=== PATIENT | female | born 1985 ===

== ENCOUNTER 2025-08-02 07:31 | Emergency (ER) | payer OTHER, SELFPAY ==
[2025-08-02] VITALS (8 sets, daily range): BP systolic 110–154; BP diastolic 58–98; PULSE 66–81; RESP 14–16; TEMP -17.7–36.6; O2SAT 100; BMI 39.7
--- NOTE | 2025-08-02 07:47 | ED.GENADULT ---
HPI - General Adult General Chief complaint: Dizziness Stated complaint: WEAKNESS,NAUSEA,LIGHTHEADEDNESS,?ANEMIA PER EMS Time Seen by Provider: 08/02/25 07:36 Source: patient and EMS Mode of arrival: EMS Limitations: no limitations History of Present Illness ED Provider: TO Naranjo HPI narrative: This is a 40-year-old female past medical history significant for anemia, hypothyroidism presents to the emergency department via ambulance with complaints of nausea, lightheadedness, feeling unwell and diffuse headache. She tells me she has a known history of anemia and according to her doctor her blood count was recently lower than he would like it to be, he ordered for her to get iron transfusions which she has not yet received. She tells me she never heard back after he sent the referral. She tells me she frequently feels lightheaded however today much worse. She felt like she was going to pass out however never passed out she was at work when all of this happened. She also reports significant nausea today. She denies visual disturbances, weakness, changes in speech, difficulty with word finding, chest pain, vomiting, abdominal pain, changes in urinary or bowel habits. She has not noted hematochezia, melena or hematuria. Related Data Previous Rx's ?Medication ?Instructions ?Recorded cefuroxime axetil 250 mg tablet 250 mg PO BID 7 days #14 tabs 08/02/25 Allergies Allergy/AdvReac Type Severity Reaction Status Date / Time Unable to Assess Allergy Verified 08/02/25 07:47 Review of Systems Review of Systems: Yes all other systems are reviewed and are negative [facility] Past Medical History Attestation statement: The following information was validated with the patient. Source: old records reviewed and nursing notes reviewed Social History Social History Smoked in Last 30 Days: No Use of substances other than those prescribed or required for medical reasons: No Advance Directives: No Advance Directives Information Provided: Yes Do you have a plan to hurt others: No Plan Physical Exam ED Exam Exam: Appearance: Alert.? Oriented X3.? No acute distress.? Head: Normocephalic, atraumatic, no step-offs or deformities Eyes: Pupils equal, round and reactive to light.? ENT: Pharynx normal.? Neck: Normal inspection.? Neck supple.? CVS: Normal heart rate and rhythm.? Pulses normal.? Respiratory: No respiratory distress.? Breath sounds normal.? Abdomen: Soft and nontender.? Skin: Skin warm and dry.? Normal skin color.? Normal skin turgor.? Extremities: No lower extremity edema.? No calf ttp. 5/5 strength to bilateral upper and lower extremities Back: No midline tenderness, no C-spine tenderness, full range of motion, no CVA tenderness bilaterally Neuro: Oriented X 3.? No motor deficit.? No sensory deficit. CN 2-12 intact . Normal [id number], kihs-zl-[id number] steady tandem gait normal coordination Vital Signs: Vital Signs - 24 hr 08/02/25 07:46 08/02/25 08:19 08/02/25 08:39 Temperature 98 F 98 F Pulse Rate 71 71 66 Respiratory Rate 16 16 Blood Pressure 139/81 139/81 110/58 L Pulse Oximetry 100 100 Oxygen Delivery Method Room Air Room Air 08/02/25 08:41 08/02/25 08:42 08/02/25 09:50 Temperature Pulse Rate 68 73 68 Respiratory Rate 14 Blood Pressure 125/71 125/69 122/63 Pulse Oximetry 100 Oxygen Delivery Method Room Air BMI result Body Mass Index 39.7 vss NIH Stroke Scale Internal: Initial- Upon Arrival Level of Consciousness: Alert Level of Consciousness Questions: Answers both questions correctly Level of Consciousness Commands: Performs both tasks correctly Best Gaze: Normal Visual: No visual loss Facial Palsy: Normal Motor Arm (Right): No drift Motor Arm (Left): No drift Motor Leg (Right): No drift Motor Leg (Left): No drift Limb Ataxia: Absent Sensory: Normal Best Language: No aphasia Dysarthia: Normal Extinction and Inattention: No abnormality Score: 0 Course Reevaluation(s) Reevaluation #1: CBC unremarkable. Hemoglobin 10.2, hematocrit 33.5 with a normal MCV this is consistent with a normocytic hypochromic anemia. Patient's chemistry with no acute electrolyte abnormalities necessitating intervention. Beta hCG negative. Normal lipase. Coags unremarkable. Time: 09:01 Reevaluation #2: Orthostatic vital signs negative. Time: 09:12 Reevaluation #3: Patient's urine with evidence of infection. Positive leukocyte esterases and nitrates. Time: 09:46 Additional Reevaluation(s): Patient tells me she is feeling better her headache is gone upon re-evaluation her NIH stroke scale is still 0 she is no longer dizzy she did not need the meclizine I had ordered. She does report that she is having slight clear vaginal discharge. Will order BV, gonorrhea and chlamydia. She is stable with 1 partner her she does not think she has an STD or STI. For now will not prophylactically treat. Will wait for results. Medications Administered Discontinued Medications Generic Name Dose Route Start Last Admin Trade Name Margo PRN Reason Stop Dose Admin Sodium Chloride 1,000 mls @ 999 mls/hr 08/02/25 08:00 08/02/25 09:50 Ns IV 08/02/25 09:00 Infused .Q1H1M LINA Infusion Acetaminophen 1,000 mg in 100 mls @ 400 mls/hr 08/02/25 07:51 08/02/25 08:34 Ofirmev IV 08/02/25 08:05 Infused ONCE ONE Infusion Meclizine HCl 25 mg 08/02/25 09:12 08/02/25 09:52 Meclizine Hcl 25 Mg Tablet PO 08/02/25 09:13 Not Given ONCE ONE Ondansetron HCl 4 mg 08/02/25 07:51 08/02/25 08:19 Ondansetron Hcl 4 Mg/2 Ml Vial IVPUSH 08/02/25 07:52 4 mg ONCE ONE Administration Medical Decision Making Medical Decision Making [facility] Narrative: 0749 40-year-old female presents with lightheadedness, nausea, fatigue all of which started just prior to arrival while patient was at work. She has a known history of anemia. Physical exam benign. History and physical exam concerning for anemia. She does have a history of hypothyroidism, unlikely thyroid storm. Will rule out metabolic derangements. NIH stroke scale 0 unlikely stroke, posterior stroke. Will rule out urinary infection. Low suspicion for viral illness. Plan labs, imaging, urine Differential Diagnosis Differential Diagnoses: The differential diagnosis associated with the presentation includes (History and physical exam concerning for anemia. She does have a history of hypothyroidism, unlikely thyroid storm. Will rule out metabolic derangements. NIH stroke scale 0 unlikely stroke, posterior stroke. Will rule out urinary infection. Low suspicion for viral illness.) Admission/Observation Consideration of admission/observation: Escalation of care including admission/observation considered Lab Data [facility] Lab Attestation statement: I reviewed the patient's lab results. 08/02/25 07:57 10/10/25 07:57 Labs: Lab Results 08/02/25 08/02/25 08/02/25 Range/Units 07:57 08:03 09:26 WBC 7.6 (4.8-10.8) X10*3/uL RBC 4.00 L (4.20-5.50) X10*6/uL Hgb 10.2 L (12.0-16.0) g/dl Hct 33.5 L (37.0-47.0) % MCV 83.8 (80.0-98.0) fL MCH 25.5 L (27.0-33.0) pg MCHC 30.4 L (31.0-35.0) g/dl RDW 22.2 H (11.0-16.0) % Plt Count 301 (160-400) X10*3/uL MPV 11.5 (9.4-12.3) fL Immature Gran % (Auto) 0.3 (0.0-0.4) % Neut % (Auto) 62.3 (45-73) % Lymph % (Auto) 27.0 (20-40) % Sherman % (Auto) 8.2 (2-11) % Eos % (Auto) 1.7 (0-4) % Baso % (Auto) 0.5 (0-2) % Lymph # (Auto) 2.1 (1.2-4.9) X10*3/uL [place] # (Auto) 0.6 (0.1-1.2) X10*3/uL Eos # (Auto) 0.1 (0.0-0.4) X10*3/uL Baso # (Auto) 0.0 (0.0-0.2) X10*3/uL Abs Immat Gran (auto) 0.02 (0.00-0.03) X10*3/uL Absolute Neuts (auto) 4.8 (2.0-8.3) x10*3/uL Absolute Nucleated RBC 0.000 (0.0-0.012) X10*3/uL Nucleated RBC % (auto) 0.0 (0.0-0.2) /100WBC PT 12.3 (10.9-12.4) SEC INR 1.1 (0.9-1.1) Sodium 140 (135-145) mmol/L Potassium 3.5 (3.3-5.1) mmol/L Chloride 107 (96-108) mmol/L Carbon Dioxide 26 (22-29) mmol/L Anion Gap 11 L (12-20) BUN 10 (9-16) mg/dL Creatinine 0.51 (0.5-1.4) mg/dL Estim Creat Clear Calc 173.0 Estimated GFR > 60 Random Glucose 93 (60-115) mg/dL Calcium 8.8 (8.4-10.2) mg/dL Magnesium 2.0 (1.6-2.6) mg/dL Total Bilirubin 0.4 (0.0-1.0) mg/dL AST 23 (5-31) U/L ALT 24 (0-31) U/L Alkaline Phosphatase 76 (39-117) U/L Total Protein 6.7 (6.5-8.0) g/dL Albumin 4.1 (3.5-5.0) g/dL Lipase 16 (8-78) U/L Beta HCG, Quant < 2 mIU/mL Urine Color Yellow Urine Appearance Hazy Urine pH 5.5 (5.0-9.0) Ur Specific [place] 1.015 (1.005-1.025) Urine Protein Negative (Neg-Trace) mg/dL Urine Glucose (UA) Negative (Negative) mg/dL Urine Ketones Negative (Negative) mg/dL Urine Blood Negative (Negative) Urine Nitrite Positive H (Negative) Ur Leukocyte Esterase Trace H (Negative) Blood Type A Positive Antibody Screen NEGATIVE Independent Interpretation I performed an independent interpretation of an: CT Scan Radiology Impression Discussion of test interpretation with radiology: I have reviewed the radiologist's reading. Independent Historian Clinical information obtained from an independent historian. History obtained from or confirmed by: EMS Chronic Conditions Patient?s care impacted by: Other (see hpi ) Critical Care Time Critical Care Time Critical Care Time: Yes Total Critical Care Time: 35 Attestation: I attest to this time spent taking care of the patient, obtaining history, physical, reviewing labs, imaging, treatment of patients condition +/- specialist/hospitalist consult +/- procedure Discharge Plan Discharge Clinical Impression: Light-headedness, Anemia, Urinary tract infection, Headache Patient Disposition: Home, Self-Care Instructions: Urinary Tract Infection in Women (ED), Acute Headache (ED), Acute Headache (DC), Anemia (ED) Additional Instructions: Take your medications as prescribed. If you were prescribed antibiotics today, it is important that you take your medication to their entirety, do not skip any doses, do not finish them early. Follow-up with your primary care provider this week. Return to the emergency department with new or worsening symptoms. Such as fevers, chills, chest pain, shortness of breath, nausea, vomiting, dizziness, headache, vision changes, lethargy In case of emergency call 911 Your laboratory study showed a anemia however your hemoglobin and hematocrit were not low enough to do a blood transfusion. You were noted to have a urinary tract infection will send you home with 7 days of antibiotics as discussed. I did have you swab herself for bacterial vaginosis those results are pending if they are positive you will receive a call with results. Your antibiotics were sent to [facility] on [address] Prescriptions: New cefuroxime axetil 250 mg tablet 250 mg PO BID 7 Days Qty: 14 0RF Referrals: Physician,Unknown J [Primary Care Provider, Medical] Stand Alone Forms: Work/School Release Print Language: Mongolian
--- NOTE | 2025-08-02 08:02 | PC.NURSE ---
40 F presetns to ED wit hx anemia, with dizziness, lightheadedness, and nausea since being at work this morning A+Ox4, calm, cooperative. RR even and unlabored, denies CP or SOB.
[2025-08-02 08:03] LABS: MANUAL DIFF FLAG NO
[2025-08-02 08:06] LABS: Hematocrit 33.5 % (37.0-47.0); Hemoglobin 10.2 g/dl (12.0-16.0); Imm Gran Abs Auto 0.02 X10*3/uL (0.00-0.03); Imm Gran Pct Auto 0.3 % (0.0-0.4); Lymphocytes Absolute Auto 2.1 X10*3/uL (1.2-4.9); Mean Corpuscular HGB Conc 30.4 g/dl (31.0-35.0); Mean Corpuscular Hemoglobin 25.5 pg (27.0-33.0); Mean Corpuscular Volume 83.8 fL (80.0-98.0); NRBC Abs Auto 0.000 X10*3/uL (0.0-0.012); NRBC Pct Auto 0.0 /100WBC (0.0-0.2); Platelet Count 301 X10*3/uL (160-400); Red Blood Count 4.00 X10*6/uL (4.20-5.50); White Blood Count 7.6 X10*3/uL (4.8-10.8)
[2025-08-02 08:20] LABS: INTERNATIONAL NORM RATIO 1.1 (0.9-1.1); Prothrombin Time 12.3 SEC (10.9-12.4)
[2025-08-02 08:23] LABS: Alanine Aminotransferase 24 U/L (0-31); Albumin Level 4.1 g/dL (3.5-5.0); Alkaline Phosphatase 76 U/L (39-117); Anion Gap 11 (12-20); Aspartate Amino Transferase 23 U/L (5-31); Blood Urea Nitrogen 10 mg/dL (9-16); Calcium 8.8 mg/dL (8.4-10.2); Carbon Dioxide 26 mmol/L (22-29); Chloride 107 mmol/L (96-108); Creatinine Clr Calc Pharmacy 173.0; Estimated Glomerular Filt Rate > 60; Lipase 16 U/L (8-78); Magnesium 2.0 mg/dL (1.6-2.6); Potassium 3.5 mmol/L (3.3-5.1); Sodium 140 mmol/L (135-145); Total Protein 6.7 g/dL (6.5-8.0)
[2025-08-02 09:42] LABS: Glucose Urine UA Negative (Negative); PH 5.5 (5.0-9.0); Specific Gravity - Urine 1.015 (1.005-1.025); UMIC TRIGGER UACC YES
[2025-08-02 09:43] LABS: Appearance Urine Hazy
--- NOTE | 2025-08-02 09:53 | PC.NURSE ---
pt no longer having dizziness or nausea, headache gone as well. pending d/c
[2025-08-02 10:22] LABS: UACC Culture Trigger YES
[2025-08-02 11:48] LABS: Bacterial Vaginosis PCR NEGATIVE (Negative); Candida Group PCR NOT DETECTED (Not Detect); Candida glab krusei PCR DETECTED (Not Detect); Trichomonas vaginalis PCR NOT DETECTED (Not Detect)
[2025-08-03 05:18] LABS: CT PCR Urine NOT DETECTED (Not Detect.); NG PCR Urine NOT DETECTED (Not Detect.)
== END 2025-08-02 10:41 | disposition home or self-care (01) ==
PROVIDERS: Physician Assistant; Emergency Provider Emergency Medicine Emergency Medical Services
DX: N39.0 Urinary tract infection, site not specified (principal); R42 Dizziness and giddiness; R53.1 Weakness; R11.2 Nausea with vomiting, unspecified; N89.8 Other specified noninflammatory disorders of vagina; R51.9 Headache, unspecified; Z79.899 Other long term (current) drug therapy; Z20.2 Contact with and (suspected) exposure to infections with a predominantly sexual mode of transmission
CPT/HCPCS: 36415; 80053; 81001; 81515; 83690; 83735; 84443; 84702; 85025; 85610; 86850; 86900; 86901; 87086; 87088; 87186; 87491; 87591; 96361; 96374; 96375; 99284; 99285; J0131; J2405